=== PATIENT | male | born 1945 | race American Indian/Alaskan Native ===

== ENCOUNTER → 2017-03-02 | Outpatient (REF) | payer MEDICARE, MEDICAID ==
[~2017-03-02] MED LIST: /CIPR75TA OR; /LOR25TA OR; /TAMS4CA OR; /THIA10TA OR; ACET65TA OR; ALDA25TA2 PO; ASPI325T OR; ASPI81TA45 OR; ASPI81TA83 OR; BISO10TA2 OR; BISO10TA6 PO; CAPT50TA4 OR; CILOSTAZOL PO; CIPRODEX AS; CLOB0.0513 EX; DIGO0.257 OR; DIGO0.257 PO; DIGO25TA PO; FOLI1TAB OR; FOLI1TAB86 PO; GLIM1TAB OR; IMODIUM; MAGN500T2 OR; MUPI2OIN EX; NEUR300C OR; NEUR400C OR; PRIL20CA OR; Pletal PO; SARNLOT EX; SERT50TA2 OR; VITA100T60 PO; ZEST2.5T3 PO
[2017-03-02 20:24] LABS: MEAN CORPUSCULAR HEMOGLOBIN 32.5 pg (27.0-33.0); MEAN CORPUSCULAR HGB CONC 32.1 g/dl (32.0-36.5); MEAN CORPUSCULAR VOLUME 101.2 fl (80.0-96.0); RED CELL DISTRIBUTION WIDTH 14.1 % (11.5-14.5); WHITE BLOOD COUNT 3.9 K/mm3 (4.0-10.0)
[2017-03-02 20:48] LABS: ALBUMIN 3.4 GM/DL (3.2-5.2); ALBUMIN/GLOBULIN RATIO 0.85 (1.00-1.93); ALKALINE PHOSPHATASE 100 U/L (45-117); ALT/SGPT 12 U/L (12-78); ANION GAP 5 MEQ/L (8-16); AST/SGOT 24 U/L (15-37); BILIRUBIN,TOTAL 0.5 MG/DL (0.2-1.0); BLOOD UREA NITROGEN 7 MG/DL (7-18); CALCIUM LEVEL 8.8 MG/DL (8.8-10.2); CARBON DIOXIDE LEVEL 27 MEQ/L (21-32); CHLORIDE LEVEL 104 MEQ/L (98-107); CREATININE FOR GFR 0.92 MG/DL (0.70-1.30); GLOMERULAR FILTRATION RATE > 60.0 (>42); GLUCOSE, FASTING 134 MG/DL (83-110); POTASSIUM SERUM 5.1 MEQ/L (3.5-5.1); SODIUM LEVEL 136 MEQ/L (136-145); TOTAL PROTEIN 7.4 GM/DL (6.4-8.2)
== END ==
LOC: M SFHCADAM 11:23
PROVIDERS: ATTEND Family Medicine
DX: I50.20 Unspecified systolic (congestive) heart failure (principal); E11.40 Type 2 diabetes mellitus with diabetic neuropathy, unspecified
CPT/HCPCS: 80053; 83036; 85027; G0463

== ENCOUNTER 2017-07-26 12:38 | Inpatient (IN) | payer MEDICARE, MEDICAID ==
--- NOTE | 2017-07-26 13:57 | HPE ---
DATE OF ADMISSION: 07/26/2017 Monroe Lanier was admitted directly from the office to a progressive care unit (PCU) bed. His history and physical was completed in the [facility]based [facility] so will not be dictated. I had a long discussion with Monroe and then his daughter, Angela, that he looks seriously ill and requires workup. He has a history of leaving hospital against medical advice and indicated "I won't make any guarantees about this time, either." When speaking to his daughter, he told her to be sure to bring his salt to the hospital because "They don't give you any salt in that place," which portends poor compliance with his salt-restricted diet for his dilated cardiomyopathy. I advised against him driving himself to the hospital. I advised transport via ambulance or someone driving him in minimum. He rejected these recommendations and drove himself to the hospital after a discussion of the risks associated with this. I called Dr. Lopez and indicated when the patient was being admitted that he would need followup on the basics that were being done upon this admission.
[2017-07-26 14:50] VITALS: BP 116/61
[2017-07-26] MEDS ORDERED: LISI2.5T3 PO (15:06)
[2017-07-26] MEDS ORDERED: FLOM5CAP PO (15:06)
[2017-07-26] MEDS ORDERED: OMEP20CA3 PO (15:06)
[2017-07-26] MEDS ORDERED: CILO50TA PO (15:06)
[2017-07-26] MEDS ORDERED: BISO5TAB5 PO (15:06)
[2017-07-26] MEDS ORDERED: SPIR25TA2 PO (15:06)
[2017-07-26] MEDS ORDERED: DIGO0.25 PO (15:06)
[2017-07-26] MEDS ORDERED: ADVI200T PO (15:06)
[2017-07-26] MEDS ORDERED: GABA-282 PO (15:06)
[2017-07-26] MEDS ORDERED: ASPI81TA24 PO (15:06)
--- NOTE | 2017-07-26 15:11 | REP ---
Chest x-ray: Two views. History: Dyspnea on exertion. Comparison chest x-ray June 10, 2016. Findings: A unipolar pacemaker is seen in the right heart via the left side as before. The lungs are well inflated and free of infiltrate. Left hemidiaphragm is slightly elevated with mild gaseous distension of the colon in the left upper quadrant of the abdomen. The pleural angles are sharp. Pulmonary vasculature is not increased. Impression: Gaseous distension of colon loops under the left hemidiaphragm. Pacemaker in the right heart. Otherwise no acute disease. Signed by Bryan Salcido MD 07/26/2017 06:36 P
[2017-07-26] MEDS ORDERED: BISOPROLOL FUMARATE 5 MG TAB PO ONE (15:30)
[2017-07-26 15:42] LABS: INR 1.11
[2017-07-26 16:04] LABS: BASO % 0.2 % (0.0-1.0); EOS # 0.1 K/mm3 (0.0-0.50); EOS % 0.9 % (0.0-3.0); LARGE UNSTAINED CELL # 0.1 K/mm3 (0.0-0.4); LARGE UNSTAINED CELL % 1.8 % (0.0-4.0); LYMPH # 0.8 K/mm3 (1.5-4.5); LYMPH % 9.7 % (24.0-44.0); MEAN CORPUSCULAR HEMOGLOBIN 32.7 pg (27.0-33.0); MEAN CORPUSCULAR HGB CONC 33.3 g/dl (32.0-36.5); MEAN CORPUSCULAR VOLUME 98.1 fl (80.0-96.0); MONO # 0.4 K/mm3 (0.0-0.8); MONO % 5.4 % (0.0-5.0); NEUTROPHILS # 6.4 K/mm3 (1.8-7.7); PLATELET COUNT, AUTOMATED 267 k/mm3 (150-450); RED CELL DISTRIBUTION WIDTH 14.3 % (11.5-14.5); WHITE BLOOD COUNT 7.8 K/mm3 (4.0-10.0)
[2017-07-26 16:07] LABS: ALBUMIN 2.1 GM/DL (3.2-5.2); ALBUMIN/GLOBULIN RATIO 0.57 (1.00-1.93); ALKALINE PHOSPHATASE 215 U/L (45-117); ALT/SGPT 12 U/L (12-78); ANION GAP 8 MEQ/L (8-16); AST/SGOT 21 U/L (15-37); BLOOD UREA NITROGEN 18 MG/DL (7-18); CALCIUM LEVEL 7.6 MG/DL (8.8-10.2); CARBON DIOXIDE LEVEL 26 MEQ/L (21-32); CHLORIDE LEVEL 104 MEQ/L (98-107); CREATININE FOR GFR 0.83 MG/DL (0.70-1.30); FREE T4 1.39 NG/DL (0.76-1.46); GLOMERULAR FILTRATION RATE > 60.0 (>42); GLUCOSE, FASTING 103 MG/DL (83-110); POTASSIUM SERUM 5.1 MEQ/L (3.5-5.1); SODIUM LEVEL 138 MEQ/L (136-145); TOTAL PROTEIN 5.8 GM/DL (6.4-8.2)
[2017-07-26 16:12] LABS: MAGNESIUM LEVEL 1.2 MG/DL (1.8-2.4)
[2017-07-26 16:17] LABS: DIGOXIN LEVEL 2.3 NG/ML (0.5-2.0)
[2017-07-26] MEDS ORDERED: GASTROGRAFIN SOLUTION 30ML PO ONE (18:15)
[2017-07-26] MEDS ORDERED: GASTROGRAFIN SOLUTION 30ML (Q9963) PO ONE (18:45)
--- NOTE | 2017-07-26 19:05 | ECGEPIP ---
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
[2017-07-26] MEDS ORDERED: ISOVUE-370 76% 100ML VIAL (Q9967) As Ordered ONE (19:26)
[2017-07-26 20:00] VITALS: BP 107/60
[2017-07-26] MEDS: TAMSULOSIN 0.4 MG CAP PO SCH (21:01)
[2017-07-26] MEDS: MAGNESIUM OXIDE 400 MG TAB (MAG-OX) PO SCH (21:01)
--- NOTE | 2017-07-26 21:30 | REPUSA ---
HISTORY: Abdominal distention and pain. TECHNIQUE: Axial CT imaging of abdomen and pelvis with sagittal and coronal reformatted imaging with oral contrast and with and without intravenous contrast. DLP= 803 mGy-cm. FINDINGS: Bone windows demonstrate compression fractures at T12 and L2. Lumbar vertebral bodies and degenerative changes in the spine without significant canal stenosis seen. Lung bases are clear. He art is enlarged. There is a small sliding hiatal hernia. There is a huge amount of ascites in the abdomen around the liver, spleen, paracolic gutters, and in the dependent pelvis. Liver is of normal size with no definite focal pathologic mass lesions seen. Portal vein is opacified with contrast without thrombosis, and measures 1.2 cm. There is a slightly lobulated contour to the liver raising question of cirrhosis which should be clinically correlated. Biliary tree and gallbladder are normal with no gallstones seen. Spleen is normal. Pancreas is atrophic with no mass or pancreatic calcification seen.. Right and left adrenal glands a re normal. Both kidneys function without evidence of solid mass lesion, calculus, or obstruction. T here is a benign 1.5 cm cyst in the left kidney. Ureters and urinary bladder are normal. The oral contrast is limited to the proximal and mid small bowel, which is dilated consistent with no nspecific ileus. There is marked gaseous distention throughout the colon consistent with colonic ile us. No free peritoneal air is seen. There is no detectable bowel wall mass lesion or evidence of joya wel obstruction or perforation. There is a small left inguinal hernia, containing ascitic fluid. There is calcification in the abdominal aorta with no evidence of aneurysm. No retroperitoneal or me senteric lymphadenopathy is seen. No pelvic mass lesions are seen. IMPRESSION: 1. There is a large amount of ascites throughout the upper, mid, and lower abdomen and p jairo. There is a slightly lobulated contour to the liver raising question of cirrhosis and portal v ein is borderline dilated. Clinical correlation is suggested. No definite liver masses seen and no portal vein thrombosis is seen. 2. Abnormal dilatation of the small bowel suggesting nonspecific ileus in gaseous distention of the colon consistent with nonspecific colonic ileus without evidence of bowel obstruction, mass lesion, p erforation, or evidence of diverticulitis. 3. Small sliding hiatal hernia and small left inguinal hernia noted. 4. Bilateral functioning kidneys with small left renal cyst, with no renal mass, calcification, or o bstruction seen. 5. Cardiomegaly. 6. Compression fractures at T12 and L2 which appear to be old, and degenerative spondylosis througho ut the spine. .
--- NOTE | 2017-07-26 21:50 | ECHO ---
DATE OF PROCEDURE: 07/26/2017 REFERRING PHYSICIAN: Arun Leonard MD INDICATION: Dyspnea. HEIGHT: 69 inches WEIGHT: 130 pounds 2D MEASUREMENTS: Aortic root: 2.8 cm Left atrium: 4.5 cm Ventricular septum: 0.85 cm Posterior wall: 1.07 cm Left ventricle diastole: 5.3 cm Inferior vena cava: 1.5 cm with normal respiratory variation. DOPPLER MEASUREMENTS: Aortic valve velocity: 87 cm/s LVOT velocity: 71.4 cm/s LVOT VTI: 12.3 cm Mitral E velocity: 63.2 cm/s Mitral A velocity: 38.0 cm/s Mitral deceleration time: 218 ms Mild tricuspid regurgitation. Estimated right ventricle systolic pressure 29-34 mmHg assuming a right atrial pressure of 5-10 mmHg. MITRAL ANNULAR TISSUE DOPPLER: E prime lateral: 14.2 cm/s E prime septal: 9.2 cm/s DESCRIPTION: This was a technically difficult echocardiogram. This was a 2D, M-mode, color flow Doppler and pulse wave Doppler examination that included mitral annular tissue Doppler. No pericardial effusion. CONCLUSIONS: 1. Normal left ventricle internal dimensions and wall thickness. Normal regional left ventricle (LV) wall motion and wall thickening. Normal LV systolic function. Left ventricular ejection fraction (LVEF) 65% by visual estimate. Normal LV diastolic function. 2. Mild left atrial dilatation. 3. Suggestive of borderline to mild elevation of estimated right ventricle systolic pressure. 4. Mild mitral annular calcification. 5. Presence of a ventricular pacemaker lead which appears to implant into the right ventricle outflow tract. 6. Technically difficult echocardiogram.
[2017-07-26 22:45] LABS: FERRITIN 478 NG/ML (26-388)
[2017-07-27] VITALS (7 sets, daily range): BP systolic 82–126; BP diastolic 40–69
[2017-07-27] MEDS ORDERED: NS 1,000 ML IV SCH (00:15)
[2017-07-27] MEDS ORDERED: NS 500 ML IV ONE (00:15)
[2017-07-27 06:05] LABS: MEAN CORPUSCULAR HEMOGLOBIN 32.8 pg (27.0-33.0); MEAN CORPUSCULAR HGB CONC 33.4 g/dl (32.0-36.5); RED CELL DISTRIBUTION WIDTH 14.2 % (11.5-14.5); WHITE BLOOD COUNT 6.9 K/mm3 (4.0-10.0)
[2017-07-27 06:12] LABS: ANION GAP 7 MEQ/L (8-16); BLOOD UREA NITROGEN 15 MG/DL (7-18); CALCIUM LEVEL 7.8 MG/DL (8.8-10.2); CARBON DIOXIDE LEVEL 24 MEQ/L (21-32); CHLORIDE LEVEL 106 MEQ/L (98-107); GLOMERULAR FILTRATION RATE > 60.0 (>42); GLUCOSE, FASTING 85 MG/DL (83-110); POTASSIUM SERUM 4.6 MEQ/L (3.5-5.1); SODIUM LEVEL 137 MEQ/L (136-145)
[2017-07-27] MEDS: THIAMINE 100 MG TAB PO SCH (08:55)
[2017-07-27] MEDS: MAGNESIUM OXIDE 400 MG TAB (MAG-OX) PO SCH ×2 (08:55→20:40)
[2017-07-27] MEDS: BISOPROLOL FUMARATE 5 MG TAB PO SCH (08:56)
[2017-07-27] MEDS ORDERED: MAG SULF 1GM/100ML (MAG RUN) 1 GM in APPROPRIATE DILUENT 1 EA IV ONE (09:00)
--- NOTE | 2017-07-27 09:09 | IPNPDOC ---
Subjective Date Seen The patient was seen on 07/27/17. Subjective Chief Complaint/HPI The patient is a 72-year-old male admitted with a reason for visit of Hypotention. Events since last encounter Pt this morning c/o generally not feeing any better. He states that he feels SOB, intermittent cough, abd fullness. His legs swell during the day with any ambulation. He does not want to be here and is adament in making sure I hear him on this. General: Reports: Fatigue Constitutional: Denies: Chills, Fever Skin: Denies: Rash Pulmonary: Reports: Dyspnea, Cough Cardiovascular: Denies: Chest Pain, Palpitations Gastrointestinal: Reports: Abdominal Pain, Denies: Nausea, Vomiting, Diarrhea, Constipation, Melena, Hematochezia Neurological: Reports: Weakness Psych: Reports: Anger Objective Physical Examination General Exam: Positive: Alert, No Acute Distress, Negative: Cooperative ENT Exam: Positive: Mucous membr. moist/pink Neck Exam: Positive: Supple Chest Exam: Positive: Clear to auscultation, Other, Negative: Normal air movement Heart Exam: Positive: Rate Normal, Normal S1, Normal S2 Abdomen Exam: Positive: BS Hypoactive, Hernia, Other (protuberant, tympanic over the central abd) Extremity Exam: Positive: Edema (trace pedal edema) Psych Exam: Positive: Mental status NL, Negative: Mood NL Assessment /Plan Problems (1) Hypotension determined by examination Status: Acute Response to Treatment: Improving Discussed With: Patient Problem Specific Plan: Monitor Clinically, Repeat Labs Problem Text: Pt with SBP 88 overnight, cont with NS at 50 cc/hr, cont to monitor pressures. (2) Cirrhosis of liver Status: Chronic Response to Treatment: Uncontrolled, Uncompensated Discussed With: Nurse, Patient Problem Specific Plan: Monitor Clinically, Repeat Labs Problem Text: New dx for pt, he has an extensive h/o of alcohol abuse, drinking as much as a 30 pack of beer daily for 20 + years. CT suggestive of moderate ascites, will obtain paracentesis. I spoke with pt about the procedure and he agrees to proceed. He has Tumor AFP, hep panel pending, INR 1.11. Consider GI referral as outpt. Will need EGD, however this can be done as an outpt. Spoke with Dr Lopez, who requests inpt consult, will consult Dr Meredith who is oncall today. (3) Alcohol abuse Status: Chronic Response to Treatment: Stable Problem Specific Plan: Monitor Clinically Problem Text: Monitor for Signs and symptoms of withdrawal, he has thiamine ordered. (4) Non-compliance Status: Chronic Response to Treatment: Stable Problem Specific Plan: Monitor Clinically Problem Text: Pt has an extensive h/o noncompliance with f/u, he is certainly at risk for leaving AMA during this hospitalization. I spent a fair amount of time with him this morning talking about his current findings on CT and how to proceed from here as well as the need for him to remain inpt as a result. He expressed understanding. (5) Hypomagnesemia Status: Acute Response to Treatment: Uncontrolled Discussed With: Patient Problem Specific Plan: Monitor Clinically, Repeat Labs Problem Text: Pt on Slow Mag, ordered Mag Run x 3, repeat Mag level this afternoon. Cont with tele. (6) Ileus Status: Acute Response to Treatment: Stable Discussed With: Patient Problem Specific Plan: Monitor Clinically Problem Text: He has no nausea, unsure when his last BM was, CT doens't suggest any obstructive concern. I will address with my attending whether to consult GS, or hold off and give him a chance to recover. Dr Lopez requests inpt consult for GS, I have paged Dr Pantoja who is section forest fire warden today. (7) Abdominal pain Status: Acute Response to Treatment: Stable, Improving Problem Specific Plan: Monitor Clinically Problem Text: Pt reported L inguinal/groin pain on admission. This is better today however, per Dr Leonard admitting physician pt with L inguinal hernia. Will consult GS - per Dr Lopez Plan/VTE VTE Prophylaxis Ordered?: No (Can be started after paracentesis) [facility] Sign[facility]/I&O Vital Signs Date Time Temp Pulse Resp B/P (MAP) Pulse Ox O2 Delivery O2 Flow Rate FiO2 07/27/17 07:30 97.4 75 22 126/69 (88) 100 Room Air I&O- Last 24 Hours up to 6 AM 07/28/17 05:59 Intake Total 50 ml Output Total 200 ml Balance -150 ml Laboratory Data 24H LABS Laboratory Tests 2 07/26/17 15:23: Prothrombin Time 14.5, Prothromb Time International Ratio 1.11, Activated Partial Thromboplast Time 27.8, Anion Gap 8, Glomerular Filtration Rate > 60.0, Blood Urea Nitrogen 18, Creatinine 0.83, Sodium Level 138, Potassium Level 5.1, Chloride Level 104, Carbon Dioxide Level 26, Calcium Level 7.6L, Aspartate Amino Transf (AST/SGOT) 21, Alanine Aminotransferase (ALT/SGPT) 12, Total Creatine Kinase 23L, Alkaline Phosphatase 215H, Total Bilirubin 1.0, Total Protein 5.8L, Albumin 2.1L, Creatine Kinase MB 1.5, Creatine Kinase MB Relative Index 6.52H, Troponin I < 0.02, Albumin/Globulin Ratio 0.57L, Thyroid Stimulating Hormone (TSH) 4.560H, Free Thyroxine 1.39, Digoxin Level 2.3H 07/26/17 15:24: White Blood Count 7.8, Red Blood Count 3.17L, Hemoglobin 10.4L, Hematocrit 31.1L , Mean Corpuscular Volume 98.1H, Mean Corpuscular Hemoglobin 32.7, Mean Corpuscular Hemoglobin Concent 33.3, Red Cell Distribution Width 14.3, Platelet Count 267, Neutrophils (%) (Auto) 82.0H, Lymphocytes (%) (Auto) 9.7L, Monocytes (%) (Auto) 5.4H, Eosinophils (%) (Auto) 0.9, Basophils (%) (Auto) 0.2, Neutrophils # (Auto) 6.4, Lymphocytes # (Auto) 0.8L, Monocytes # (Auto) 0.4, Eosinophils # (Auto) 0.1, Basophils # (Auto) 0.0, Large Unclassified Cells % 1.8 , Large Unclassified Cells # 0.1, Magnesium Level 1.2L, Ammonia 22, Amylase Level 31, Lipase 90 07/26/17 22:10: Total Creatine Kinase 20L, Creatine Kinase MB 1.4, Creatine Kinase MB Relative Index 7.00H, Troponin I < 0.02, Ferritin 478H 07/27/17 05:21: Anion Gap 7L, Glomerular Filtration Rate > 60.0, Blood Urea Nitrogen 15, Creatinine 0.80, Sodium Level 137, Potassium Level 4.6, Chloride Level 106, Carbon Dioxide Level 24, Calcium Level 7.8L, Total Creatine Kinase 17L, Creatine Kinase MB 1.1, Creatine Kinase MB Relative Index 6.47H, Troponin I < 0.02, Magnesium Level 1.0L CBC/BMP Laboratory Tests 07/26/17 15:23 Calcium Level 7.6 L, Aspartate Amino Transf (AST/SGOT) 21, Alanine Aminotransferase (ALT/SGPT) 12, Total Creatine Kinase 23 L, Alkaline Phosphatase 215 H, Total Bilirubin 1.0, Total Protein 5.8 L, Albumin 2.1 L 07/26/17 15:24 Red Blood Count 3.17 L, Mean Corpuscular Volume 98.1 H, Mean Corpuscular Hemoglobin 32.7, Mean Corpuscular Hemoglobin Concent 33.3, Red Cell Distribution Width 14.3, Neutrophils (%) (Auto) 82.0 H, Lymphocytes (%) (Auto) 9.7 L, Monocytes (%) (Auto) 5.4 H, Eosinophils (%) (Auto) 0.9, Basophils (%) ( Auto) 0.2, Neutrophils # (Auto) 6.4, Lymphocytes # (Auto) 0.8 L, Monocytes # ( Auto) 0.4, Eosinophils # (Auto) 0.1, Basophils # (Auto) 0.0 07/27/17 05:21 Calcium Level 7.8 L, Total Creatine Kinase 17 L, Red Blood Count 2.90 L, Mean Corpuscular Volume 98.0 H, Mean Corpuscular Hemoglobin 32.8, Mean Corpuscular Hemoglobin Concent 33.4, Red Cell Distribution Width 14.2 Microbiology Microbiology 07/27/17 Gastrointestinal Tract Panel (PCR), Received Pending Attending Note Attending Note Patient reports significant symptom improvement after paracentesis. Breathing better. Still would like to proceed with surgical consult re his left inguinal hernia. JEOVANNY CARRILLO PA-C Jul 27, 2017 09:09 Yahir Lopez MD Jul 27, 2017 13:34
[2017-07-27] MEDS: MAG SULF 1GM/100ML (MAG RUN) 1 GM in APPROPRIATE DILUENT 1 EA IV SCH ×3 (09:27→12:38)
[2017-07-27] MEDS ORDERED: OXAZEPAM 15 MG CAP PO PRN (09:45)
[2017-07-27] MEDS: ENOXAPARIN 40 MG/0.4 ML SYRINGE (J1650) SC SCH (12:39)
--- NOTE | 2017-07-27 17:40 | REP ---
Ultrasound-guided paracentesis The procedure was performed under the direct supervision of Dr. De La Paz. The risks and benefits of the procedure were explained to the patient and informed consent was obtained. The largest pocket of fluid was localized in the right lower quadrant using ultrasound guidance. The skin was prepped and draped in a sterile fashion. 1% lidocaine was used as a local anesthetic. Using ultrasound guidance, an 8-Hungarian multi side-hole catheter was inserted using trocar technique. 1,250 ml of clear yellow fluid was withdrawn and sent to the lab. The the patient tolerated the procedure well and there were no immediate complications. After the appropriate amount of monitored convalescence the patient was discharged from the department. Reviewed by SRAVAN Perrin 07/27/2017 03:10 PSigned by Derian De La Paz MD 07/27/2017 05:31 P
--- NOTE | 2017-07-27 18:55 | CR ---
DATE OF CONSULTATION: 07/27/2017 REASON FOR CONSULTATION: Ascites with left inguinal hernia. The patient is a 72-year-old man who was admitted on 07/26/2017 after being seen in the office with hypotension. The patient's medical history is significant for significant alcohol intake, with a history of previous alcoholic cardiomyopathy. He has a history of atrial fibrillation and chronic obstructive pulmonary disease. He has type 2 diabetes. He was seen in the office on 07/26/2017 and apparently looked quite ill. Dr. Leonard spoke with him about admission to the hospital for management of what appeared to be new onset ascites with hypotension. The patient consented to admission. He had a CT scan that showed moderate ascites. The radiologist felt there was some nodular appearance to the liver suggesting possible cirrhosis. He was also noted to have a small left inguinal hernia. There was also a suggestion of some abnormal dilation of the small bowel consistent with ileus, though there was no definite obstruction seen. The patient was admitted and has actually undergone a paracentesis today with removal of approximately 1200 mL of fluid. I was asked to evaluate the patient regarding his possible ileus and hernia. ALLERGIES: The patient's medical record reports no medical allergies. His current medications include Flomax, Zebeta, magnesium oxide, thiamine, Lovenox and Serax. His medical history is significant for his hypotension at the time of admission, though this seems improved. He apparently does have a history of cirrhosis related to his alcohol. He reports that he has had some significant swelling in his lower extremities recently. He reports that the abdominal protuberance seems to have gotten worse over the last couple of months. He is having some discomfort across the lower abdomen, but finds if he puts pressure over this area, it is helpful. He has not been having any nausea or vomiting. SURGICAL HISTORY: He has had some sort of lower extremity fracture requiring placement of a chemo. He does have a pacemaker in place in the left infraclavicular fossa. Family history is not helpful. SOCIAL HISTORY: He is a current smoker and has been a heavy drinker. His review of systems shows that he does complain of some shortness of breath and cough. He has not had any recent chest pain. He does have some lower abdominal discomfort associated with the abdominal prominence. He has had swelling in his lower extremities, though reports that it is down today after keeping his legs elevated. Vital signs today show that he has been afebrile. His pulses range between 62 and 102. His blood pressure since 0730 hours has ranged between 117 and 126 systolic and his room air saturations are normal. Physical exam reveals a pleasant man lying quietly on the hospital bed. He is alert and cooperative with the exam. His neck is supple. Heart: Exam shows a regular rhythm. The pacemaker is noted in the left infraclavicular fossa. His breath sounds are somewhat distant. The abdomen is mildly protuberant. He has a bandage in his right lower quadrant from his paracentesis today. He does have active bowel sounds identified. There are no abdominal scars seen. He does have a small inguinal hernia bulge identified in the prepubic area on the left. This is soft and without significant tenderness. The lower extremities show no significant edema currently, though there are some skin changes that would be consistent with some recent edema. Laboratory studies today show a white count of 6.9 with a hemoglobin of 10, hematocrit of 28 and a platelet count of 243,000. Chemistries show normal electrolytes with a BUN of 15, creatinine 0.8 and a glucose of 85. Magnesium is low at 1.0 this morning, though has come up to 2.1 this afternoon. His troponin was less than 0.02. CT scan done on I reviewed personally. He does have a moderate amount of ascites fluid. There is no definite peritoneal nodularity or thickening to suggest tumor. There is no definite bowel obstruction seen. There does appear to be a small left inguinal hernia containing only some ascites fluid. IMPRESSION: 1. Ascites, likely related to liver disease from chronic alcohol abuse. 2. Small left inguinal hernia containing ascites fluid only. 3. Other medical issues as noted by the admitting service. RECOMMENDATIONS: The patient has had a diagnostic paracentesis, and this certainly seems appropriate. An occult malignancy would certainly still be possible in this patient with his long history of smoking and alcohol use. If the cytology is negative, then this most likely related to chronic cirrhosis. If his ascites can be managed, then his hernia is likely to remain small and may well not require any surgical treatment. If his ascites remains uncontrolled, then he is likely to note an increase in the size of his hernia due to the pressure of his ascites fluid. Repair of his hernia would be possible, though there is certainly an associated risk of the anesthesia and surgery. The patient indicates that he will be going home tomorrow because he agreed to give Dr. Leonard only 3 days in the hospital and that will end tomorrow. If the patient leaves tomorrow as he has indicated, then he can be monitored by the family practice clinic and referred back to surgery at some time in the future if it is felt that surgery for his hernia is necessary. SHAE
[2017-07-27] MEDS: TAMSULOSIN 0.4 MG CAP PO SCH (23:26)
[2017-07-28] VITALS: BP 92/50
[2017-07-28 04:00] VITALS: BP 90/54
[2017-07-28 05:47] LABS: MEAN CORPUSCULAR HGB CONC 33.9 g/dl (32.0-36.5); MEAN CORPUSCULAR VOLUME 97.3 fl (80.0-96.0); WHITE BLOOD COUNT 7.2 K/mm3 (4.0-10.0)
[2017-07-28 06:03] LABS: ANION GAP 6 MEQ/L (8-16); BLOOD UREA NITROGEN 9 MG/DL (7-18); CALCIUM LEVEL 7.1 MG/DL (8.8-10.2); CARBON DIOXIDE LEVEL 26 MEQ/L (21-32); CHLORIDE LEVEL 105 MEQ/L (98-107); CREATININE FOR GFR 0.51 MG/DL (0.70-1.30); GLOMERULAR FILTRATION RATE > 60.0 (>42); GLUCOSE, FASTING 96 MG/DL (83-110); MAGNESIUM LEVEL 1.9 MG/DL (1.8-2.4); POTASSIUM SERUM 4.2 MEQ/L (3.5-5.1); SODIUM LEVEL 137 MEQ/L (136-145)
[2017-07-28 07:05] LABS: CARCINOEMBRYONIC ANTIGEN 3.8 NG/ML (<2.5)
[2017-07-28 08:00] VITALS: BP 110/60
[2017-07-28] MEDS: ENOXAPARIN 40 MG/0.4 ML SYRINGE (J1650) SC SCH (09:00)
[2017-07-28] MEDS ORDERED: THIA100TA PO (09:35)
[2017-07-28] MEDS ORDERED: MAG400TA PO (09:35)
[2017-07-28] MEDS: MAGNESIUM OXIDE 400 MG TAB (MAG-OX) PO SCH (10:13)
[2017-07-28 10:14] VITALS: BP 110/60
[2017-07-28] MEDS: BISOPROLOL FUMARATE 5 MG TAB PO SCH (10:14)
[2017-07-28] MEDS: THIAMINE 100 MG TAB PO SCH (10:14)
--- NOTE | 2017-07-28 10:32 | DSES ---
DATE OF ADMISSION: 07/26/2017 DATE OF DISCHARGE: 07/28/2017 PRIMARY CARE PROVIDER: Dr. Arun Leonard ATTENDING TODAY: Dr. Yahir Lopez HISTORY: This is a 72-year-old male patient who follows with Dr. Leonard in the outpatient setting who presented to [facility] with generalized illness. He was hypotensive upon presentation to the office and Dr. Leonard coordinated for him to be directly admitted for further management and monitoring into the progressive care unit. During his hospitalization, he did receive IV fluids. He had some improvement in his hypotension, although his pressures have remained on the low side. His lisinopril and spironolactone were held on admission and have continued to be held and will not be restarted at discharge. He underwent CT scan of the abdomen which revealed moderate ascites. He was complaining of shortness of breath and some intermittent left inguinal pain associated with a hernia. He felt as though this was exacerbated by the fluid that he was maintaining in his abdomen putting additional pressure. He underwent paracentesis on 07/27/2017 where they drained 1250 mL of clear yellow fluid that was drawn and sent to the lab for cytology and culture. During the rest of the hospitalization, he did remain medically stable. His magnesium level was low at 1. He received IV and oral replacement. On the day of discharge, his magnesium is 1.9. He had tumor AFP of 2, CEA was noted to be slightly elevated at 3.8. He is anemic, which does appear to be chronic and worsening in nature. His hemoglobin on the day of discharge was 9.4. Certainly, further evaluation in the outpatient setting is appropriate. I have consulted the patient on the finding of cirrhosis of his liver on CT scan. He has an extensive alcohol drinking history of 30 beers a day for the last 20 years. He is adamant that he feels as though this should not have caused his cirrhosis of his liver as he spent 24 years in care home to that and therefore had been drinking for only the last 20 years. We had a lengthy discussion about how this occurs, what his symptoms are that are related to his cirrhosis, what the potential progression of disease is, and what his management and followup will look like in the coming weeks and months. He was also counseled on alcohol cessation. He has not had any signs or symptoms of withdrawal and although Serax has been available for him he has not taken any. He was started on thiamine on admission at 100 mg daily[address] Note that [address] Pantoja did see the patient during his hospitalization for his abdominal pain, left inguinal hernia. He felt as though surgical management was not indicated at this time and that likely controlling the ascites on his abdomen would control his symptoms associated with his hernia. CT scan noted an ileus, although it was without any concern for obstruction. The patient was passing gas. He is now moving his bowels at this point. DISCHARGE DIAGNOSES: 1. Hypertension. 2. Cirrhosis of the liver. 3. Alcohol abuse. 4. Medical noncompliance. 5. Hypomagnesemia. 6. Ileus. 7. Abdominal pain. DISCHARGE MEDICATIONS: - magnesium oxide 400 mg by mouth twice a day - thiamine 100 mg by mouth daily - bisoprolol 5 mg daily - omeprazole 20 mg daily - tamsulosin 0.4 mg daily DISCHARGE PLAN: To follow up with Dr. Leonard in one week. Activity should be as tolerated. Diet should be no added salt. He should follow a 1500 mL fluid restriction. He has been consulted on alcohol abuse and cessation. He will need outpatient followup with gastroenterology for upper endoscopy. He will need abdominal ultrasounds, tumor AFPs every six months, which can be followed in the outpatient setting as well. He asked me to try to reach out to his daughter Angela. I have made a couple of phone calls without being able to leave a message. I will try to reach her again today as well. Edited: keyla 07/30/2017 1407 MTDD
[2017-08-21] MEDS ORDERED: SPIR25TA2 PO (17:58)
[2017-08-21] MEDS ORDERED: LISI2.5T3 (17:58)
[2017-08-21] MEDS ORDERED: MIRT15TA3 PO (17:58)
[2017-08-21] MEDS ORDERED: ADVI200T PO (19:26)
[2017-08-21] MEDS ORDERED: THIA100T6 PO (19:27)
== END 2017-07-28 11:16 | disposition home or self-care (01) | DRG 315 ==
LOC: M PCU 14:24
PROVIDERS: ADMIT Family Medicine; ATTEND Family Medicine
PROC: 0W9G3ZZ Drainage of Peritoneal Cavity, Percutaneous Approach (ICD-10-PCS; principal; 2017-07-27)
DX: I95.9 Hypotension, unspecified (principal); K56.7 Ileus, unspecified; K70.31 Alcoholic cirrhosis of liver with ascites; K40.90 Unilateral inguinal hernia, without obstruction or gangrene, not specified as recurrent; Z91.19 Patient's noncompliance with other medical treatment and regimen; E83.42 Hypomagnesemia; Z79.899 Other long term (current) drug therapy; R10.9 Unspecified abdominal pain; E11.9 Type 2 diabetes mellitus without complications; J44.9 Chronic obstructive pulmonary disease, unspecified; I48.91 Unspecified atrial fibrillation; F17.200 Nicotine dependence, unspecified, uncomplicated